=== PATIENT | male | born 1950 | race Two or more races ===

== ENCOUNTER 2019-06-24 10:27 | Outpatient (CLI) | payer OTHER | END 2019-06-24 11:13 | disposition home or self-care (01) | LOC: SONOGRAMA 10:27 | DX: M54.2 Cervicalgia (principal); M54.6 Pain in thoracic spine; M54.5 Low back pain; R07.89 Other chest pain ==

== ENCOUNTER 2023-03-29 11:59 | Inpatient (IN) | payer OTHER ==
[~2023-03-29] VITALS: Ht 175.3 cm; Wt 79.4 kg
[2023-03-29] MEDS ORDERED: SYNTHROID50 MCG PO (12:10)
[2023-03-31] MEDS ORDERED: SYNTHROID125 MCG (11:31)
[2023-03-31] MEDS ORDERED: METOPROLOL SUCC25 MG (11:31)
== END 2023-04-02 17:34 | disposition home or self-care (01) | DRG 395 ==
LOC: ER 11:59 → MEDJ 19:27
PROVIDERS: ADMIT Specialist; ATTEND Specialist
PROC: BW211ZZ Computerized Tomography (CT Scan) of Abdomen and Pelvis using Low Osmolar Contrast (ICD-10-PCS; principal; 2023-03-29)
DX: K35.80 Unspecified acute appendicitis (principal); I48.91 Unspecified atrial fibrillation; E03.9 Hypothyroidism, unspecified; Z85.46 Personal history of malignant neoplasm of prostate

== ENCOUNTER 2023-06-19 20:47 | Inpatient (IN) | payer OTHER ==
[~2023-06-19] VITALS: Ht 167.6 cm; Wt 72.6 kg
[~2023-06-19 20:47] MED LIST: METOPROLOL SUCC25 MG; SYNTHROID125 MCG; SYNTHROID50 MCG PO
[2023-06-20 01:09] LABS: HEMATOCRIT 37.9 % (39.0-48.0); HEMOGLOBIN 12.9 g/dL (13-16.00); MEAN CELL VOLUME 87.8 fL (80.0-100.00); MEAN CORPUSCULAR HGB CONC 34.1 g/dl (32.0-36.0); PLATELET COUNT 307 K/uL (150-450); RED BLOOD COUNT 4.32 M/uL (4.00-6.00); RED CELL DISTRIBUTION WIDTH 13.5 % (11.5-14.5)
[2023-06-20 01:19] LABS: INR 1.04; PARTIAL THROMBOPLASTIN TIME 25.3 SECONDS (22.0-34.0); PROTHROMBIN TIME 10.9 SECONDS (9.0-11.5)
[2023-06-20 01:23] LABS: BILIRUBIN TOTAL 0.4 mg/dL (0.3-1.2); CREATININE SERUM 0.99 mg/dL (0.70-1.30); GFR 74.1; GLOBULINA 3.7 G/DL (2.4-3.5); POTASSIUM 3.81 mEq/L (3.5-5.1); TOTAL PROTEIN 7.7 gm/dL (6.4-8.2)
[2023-06-20 01:23] LABS: PH,URINE 6.5 (5.0-8.0); URINE APPEARANCE Clear; URINE BILIRRUBIN Negative (NEGATIVE); URINE BLOOD Moderate; URINE COLOR Yellow; URINE GLUCOSE Negative (NEGATIVE); URINE LEUKOCYTE Negative; URINE NITRATE Negative; URINE PROTEIN Negative (NEGATIVE); URINE UROBILINOGEN 0.2 E.U./dl
[2023-06-20 01:26] LABS: URINE EPITHELIAL CELLS 1.9 uL (0.0-38.8); URINE RBC 76.4 uL (0.0-20.8); URINE WBC 3.2 uL (0.0-23.2)
[2023-06-20 01:32] LABS: URINE BACTERIA 0 uL (0.0-1933)
[2023-06-20 14:34] LABS: INR 1.09; PARTIAL THROMBOPLASTIN TIME 27.1 SECONDS (22.0-34.0); PROTHROMBIN TIME 11.4 SECONDS (9.0-11.5)
[2023-06-22 07:26] LABS: HEMATOCRIT 33.5 % (39.0-48.0); HEMOGLOBIN 11.4 g/dL (13-16.00); MEAN CORPUSCULAR HEMOGLOBIN 30.4 pg (27.00-32.0); MEAN CORPUSCULAR HGB CONC 34.1 g/dl (32.0-36.0); PLATELET COUNT 251 K/uL (150-450); RED BLOOD COUNT 3.77 M/uL (4.00-6.00); RED CELL DISTRIBUTION WIDTH 13.1 % (11.5-14.5)
[2023-06-22 07:53] LABS: CALCIUM 7.6 mg/dL (8.5-10.1); CREATININE SERUM 0.76 mg/dL (0.70-1.30); GFR 100.53; POTASSIUM 3.93 mEq/L (3.5-5.1)
== END 2023-06-25 10:58 | disposition home or self-care (01) | DRG 399 ==
LOC: ER 20:47 → SURH 06-20 13:41
PROVIDERS: General Practice; Internal Medicine; Surgery; ADMIT Internal Medicine; ATTEND Internal Medicine
PROC: BW21YZZ Computerized Tomography (CT Scan) of Abdomen and Pelvis using Other Contrast (ICD-10-PCS; 2023-06-20)
PROC: 0DTJ4ZZ Resection of Appendix, Percutaneous Endoscopic Approach (ICD-10-PCS; principal; 2023-06-23 16:00)
DX: K36 Other appendicitis (principal); K35.30 Acute appendicitis with localized peritonitis, without perforation or gangrene; I95.9 Hypotension, unspecified